=== PATIENT | female | born 1980 | race African-American/Black ===

== ENCOUNTER → 2017-03-12 | Emergency (ER) | payer MEDICAID | END | disposition left against medical advice (07) | LOC: ER 18:34 | DX: R10.9 Unspecified abdominal pain (principal); Z53.21 Procedure and treatment not carried out due to patient leaving prior to being seen by health care provider ==

== ENCOUNTER 2017-04-30 06:23 | Emergency (ER) | payer MEDICAID ==
[~2017-04-30] VITALS: Ht 160 cm; Wt 54.4 kg
[2017-04-30 07:36] VITALS: BP 111/80
== END 2017-04-30 07:50 | disposition home or self-care (01) ==
LOC: ER 06:24
DX: H60.93 Unspecified otitis externa, bilateral (principal); F41.1 Generalized anxiety disorder

== ENCOUNTER 2019-02-05 16:28 | Emergency (ER) | payer MEDICAID ==
[~2019-02-05] VITALS: Ht 160 cm; Wt 62.1 kg
[2019-02-05 17:04] LABS: Urine Bacteria FEW /hpf (None Seen); Urine Blood Negative /uL (Negative); Urine Mucus FEW (None Seen); Urine Specific Gravity 1.015 (1.001-1.035); Urine WBC 1 /hpf (0 - 5)
[2019-02-05 17:08] LABS: Alcohol, Urine < 3.0 mg/dL (0-5); Amphetamine Screen, Urine NEGATIVE (NEGATIVE); Barbiturate Scree,Urine NEGATIVE (NEGATIVE); Benzodiazephine Screen, Urine NEGATIVE (NEGATIVE); Cannabinoid Screen, Urine POSITIVE (NEGATIVE); Cocaine Screen, Urine NEGATIVE (NEGATIVE); Opiate Scree,Urine NEGATIVE (NEGATIVE); Phencyclidine Screen, Urine NEGATIVE (NEGATIVE)
[2019-02-05 18:01] LABS: Basophils # (auto) 0 uL; Eosinophils # (auto) 0.1 uL; Eosinophils % (auto) 4.3 % (0.0-7.0); Hematocrit 38.5 % (36.0-46.0); Hemoglobin 12.4 g/dL (12.2-16.2); Lymphocytes # (auto) 1.3 uL; Lymphocytes % (auto) 37.3 % (10.0-50.0); Mean Corpuscular Hemoglobin 27.5 pg (28.0-32.0); Mean Corpuscular Hgb Conc. 32.3 g/dL (32.0-36.0); Mean Corpuscular Volume 85.1 fL (80.0-100.0); Monocytes # (auto) 0.3 uL; Monocytes % (auto) 7.6 % (0.0-12.0); Neutrophils # (auto) 1.7 uL; Neutrophils % (auto) 49.8 % (37.0-80.0); Platelet Count (auto) 398 10^3/uL (140-450); Red Blood Cells 4.52 10^6/uL (4.0-5.20); Red Cell Distribution Width 18.6 % (11.8-14.3); White Blood Cell 3.4 10^3/uL (4.4-10.8)
[2019-02-05 18:05] LABS: Alanine Aminotransferase 13 U/L (13-56); Albumin 3.8 g/dL (3.4-5.0); Anion Gap 5 (5-15); Blood Urea Nitrogen 6 mg/dL (7-18); Calcium 8.7 mg/dL (8.5-10.1); Carbon Dioxide 27 mmol/L (21-32); Chloride 107 mmol/L (98-107); Glucose 85 mg/dL (74-106); Potassium 3.5 mmol/L (3.5-5.1); Sodium 139 mmol/L (136-145)
[2019-02-05 18:10] LABS: Alkaline Phosphatase 71 U/L (45-117); Aspartate Aminotransferase 14 U/L (15-37); Bilirubin, Total 0.3 mg/dL (0.2-1.0); GFR African American 110 mL/min; GFR Non-African American 91 mL/min; Total Protein 8.3 g/dL (6.4-8.2)
[2019-02-05] MEDS ORDERED: LORazepam 0.5 MG TAB PO ONE (21:00)
[2019-02-05 21:14] VITALS: BP 135/87
== END 2019-02-05 21:22 | disposition home or self-care (01) ==
LOC: ER 16:28
DX: F41.9 Anxiety disorder, unspecified (principal); F12.10 Cannabis abuse, uncomplicated
CPT/HCPCS: 36415; 71046; 80053; 80307; 81001; 83735; 84484; 85025; 93005

== ENCOUNTER 2019-09-29 01:06 | Emergency (ER) | payer MEDICAID ==
[~2019-09-29] VITALS: Ht 157.5 cm; Wt 59.0 kg
[2019-09-29 02:27] VITALS: BP 141/82
== END 2019-09-29 02:35 | disposition home or self-care (01) ==
LOC: ER 01:06
DX: F41.0 Panic disorder [episodic paroxysmal anxiety] (principal); F12.10 Cannabis abuse, uncomplicated; R06.4 Hyperventilation

== ENCOUNTER 2020-10-13 02:31 | Emergency (ER) | payer MEDICAID ==
[~2020-10-13] VITALS: Ht 160 cm; Wt 57.6 kg
[2020-10-13 04:05] LABS: Basophils # (auto) 0 10 ^3/uL (0-0.2); Basophils % (auto) 0.9 % (0.0-2.0); Eosinophils # (auto) 0.2 10 ^3/uL (0-0.8); Eosinophils % (auto) 4.7 % (0.0-7.0); Hematocrit 33.4 % (36.0-46.0); Lymphocytes # (auto) 1.9 10 ^3/uL (0.4-5.4); Lymphocytes % (auto) 47.8 % (10.0-50.0); Mean Corpuscular Hgb Conc. 32.8 g/dL (32.0-36.0); Mean Corpuscular Volume 82.2 fL (80.0-100.0); Monocytes # (auto) 0.2 10 ^3/uL (0-1.3); Monocytes % (auto) 5.7 % (0.0-12.0); Neutrophils # (auto) 1.7 10 ^3/uL (1.6-8.6); Neutrophils % (auto) 40.9 % (37.0-80.0); Nucleated Red Blood Cells % 0.1 %; Platelet Count (auto) 319 10^3/uL (140-450); Red Blood Cells 4.07 10^6/uL (4.0-5.20); Red Cell Distribution Width 14.7 % (11.8-14.3); White Blood Cell 4.1 10^3/uL (4.4-10.8)
[2020-10-13 04:19] LABS: Urine Bacteria NONE SEEN /hpf (None Seen); Urine Blood Negative /uL (Negative); Urine Mucus FEW (None Seen); Urine WBC 1 /hpf (0 - 5)
[2020-10-13 04:22] LABS: Chloride 107 mmol/L (98-107); Potassium 3.5 mmol/L (3.5-5.1); Sodium 139 mmol/L (136-145)
[2020-10-13 04:27] LABS: INR 1.03 (0.9-1.15); Partial Thromboplastin Time 28.9 sec (23.0-31.2)
[2020-10-13 04:32] LABS: Alanine Aminotransferase 15 U/L (13-56); Albumin 3.6 g/dL (3.4-5.0); Alkaline Phosphatase 74 U/L (45-117); Anion Gap 6 (5-15); Aspartate Aminotransferase 14 U/L (15-37); BUN/Creatinine Ratio 15.8; Bilirubin, Total 0.2 mg/dL (0.2-1.0); Blood Urea Nitrogen 9 mg/dL (7-18); Calcium 8.7 mg/dL (8.5-10.1); Carbon Dioxide 26 mmol/L (21-32); GFR African American 150 mL/min; GFR Non-African American 124 mL/min; Glucose 81 mg/dL (74-106); Total Protein 8.1 g/dL (6.4-8.2)
[2020-10-13] MEDS ORDERED: KETOROLAC TROMETH 30 MG/ML 1ML VIAL IV ONE (07:30)
[2020-10-13 08:00] VITALS: BP 115/80
== END 2020-10-13 08:57 | disposition home or self-care (01) ==
LOC: ER 02:31
DX: R07.89 Other chest pain (principal); F41.9 Anxiety disorder, unspecified; F12.90 Cannabis use, unspecified, uncomplicated; F32.9 Major depressive disorder, single episode, unspecified; F17.210 Nicotine dependence, cigarettes, uncomplicated; Z90.710 Acquired absence of both cervix and uterus
CPT/HCPCS: 36415; 71045; 80053; 81001; 83880; 84484; 85025; 85610; 85730; 93005; 96374; 99285; J1885